=== PATIENT | female | born 1980 | race Two or more races ===

== ENCOUNTER 2021-09-18 16:01 | Emergency (ER) | payer SELFPAY ==
[~2021-09-18] VITALS: Ht 177.8 cm; Wt 77.0 kg
[2021-09-18 16:06] VITALS: BP 146/80
== END 2021-09-18 20:34 | disposition left against medical advice (07) ==
LOC: ER 16:01
DX: Z53.21 Procedure and treatment not carried out due to patient leaving prior to being seen by health care provider (principal)